=== PATIENT | male | born 1960 | race Caucasian/White ===

== ENCOUNTER → 2022-02-24 07:56 | Outpatient (CLI) | payer OTHER, SELFPAY ==
--- NOTE | 2022-02-24 07:59 | DI.MRI.S_ITS ---
PROCEDURE: MR CERVICAL SPINE WO/W CON INDICATIONS: RULE OUT METASTATIC PROCESS TECHNIQUE: Noncontrast sagittal T1 spin echo and T2 fast spin echo, sagittal STIR, foraminal oblique sagittal T2 fast spin echo, axial gradient echo or T2 fast spin echo through the cervical spine. After the administration of contrast, axial and sagittal T1 spin echo with fat saturation through the cervical spine. COMPARISON: Outside Film, CT, CT SOFT TISSUE NECK WITH CONTRAST, 11/27/2021, 12:02. FINDINGS: Image quality: Excellent. Alignment and curvature: There is normal bony alignment. Marrow: Enhancing mass noted in the left margin of the C3 vertebral body, left facets and left lamina which has associated cortical destruction and extends into the left paraspinous soft tissues. There is loss of left lateral C3 vertebral body height compatible with mild pathologic compression fracture. Spinal cord: Visualized spinal cord has normal size and signal. No cerebellar tonsillar herniation. No abnormal intramedullary enhancement. Paraspinous soft tissues: No paravertebral masses or suspicious enhancement. C2-3: Loss of disc signal. Mild, diffuse disc bulge. Small central/left central disc protrusion. Mild to moderate narrowing of the central canal. Mild right neural foraminal narrowing. No neural compression. C3-4: Loss of disc signal. Mild, diffuse disc bulge. Small central disc protrusion. Mild to moderate narrowing of the central canal. Mild bilateral neural foraminal narrowing. No neural compression. C4-5: Loss of disc signal. Mild, diffuse disc bulge. Mild narrowing of the central canal. Mild right neural foraminal narrowing. No neural compression. C5-6: Loss of disc signal and height. Moderate, diffuse disc bulge. Small right central disc protrusion. Moderate to severe narrowing of the central canal. Mild bilateral facet hypertrophy. Mild bilateral uncovertebral joint hypertrophy. Severe bilateral neural foraminal narrowing with compression of the exiting C6 nerve roots. C6-7: Loss of disc signal and height. Moderate, diffuse disc bulge. Mild bilateral facet hypertrophy. Mild bilateral uncovertebral joint hypertrophy Moderate to severe narrowing of the central canal. Severe bilateral neural foraminal narrowing with compression of the exiting C7 nerve roots. C7-T1: Loss of disc signal. No central stenosis. No neural foraminal narrowing. No neural compression IMPRESSION: 1. Enhancing, lytic lesion involving the C3 vertebral body compatible with osseous metastatic disease. 2. Multilevel degenerative disc disease. 3. Multilevel facet and uncovertebral arthropathy. 4. Moderate to severe C5-C6 and C6-C7 central canal narrowing with slight compression of the cervical spinal cord. 5. Severe bilateral C5-C6 and C6-C7 neural foraminal narrowing with compression of the exiting bilateral C6 and C7 nerve roots. Dictated by: Mimi Duong MD, PhD on 02/26/2022 at 9:50 Approved by: Mimi Duong MD, PhD on 02/26/2022 at 10:08
--- NOTE | 2022-02-24 07:59 | DI.MRI.S_ITS ---
PROCEDURE: MR LUMBAR SPINE WO/W CON INDICATIONS: RULE OUT METASTATIC PROCESS TECHNIQUE: Noncontrast sagittal T1 spin echo and T2 fast spin echo, sagittal STIR, axial T1 and T2 fast spin echo through the lumbar spine. In cases with scoliosis, additional coronal T2 fast spin echo may be performed. After the administration of contrast, sagittal and axial T1 spin echo with fat saturation through the lumbar spine. COMPARISON: Outside Film, CT, CT ABDOMEN PELVIS WITH CONTRAST, 11/27/2021, 12:02. [place], [place], PET NECK TO MID THIGH, 01/31/2022, 10:48. FINDINGS: Image quality: Excellent. Alignment and curvature: There is normal bony alignment. Marrow: Marrow is of normal overall signal. L2 compression fracture is noted which has occurred in the interval since prior CT scan obtained November 27, 2021. The L2 compression fracture results in approximately 80% loss of normal vertebral body height. Fractures extend to the posterior wall of the L2 vertebral body indicating a burst type compression fracture. Retropulsed bone bone fragment associated with the L2 compression fracture causes mild to moderate narrowing of the central canal. No definite mass or cortical destruction associated with the L2 compression fracture. Spinal cord: Conus medullaris terminates at the T12 level. Visualized spinal cord demonstrates normal signal, without suspicious enhancement. Paraspinous soft tissues: No paravertebral masses or abnormal enhancement. IMPRESSION: 1. Acute/subacute L2 burst-type compression fracture. Fracture etiologies indeterminate and could be secondary to a osteoporotic, traumatic or pathologic etiology. 2. Retropulsed bone fragment associated with L2 compression fracture causes mild to moderate narrowing of the central canal. Dictated by: Mimi Duong MD, PhD on 02/26/2022 at 9:41 Approved by: Mimi Duong MD, PhD on 02/26/2022 at 9:47
== END ==
PROVIDERS: Referring Provider Family Medicine; Visit Provider Family Medicine
DX: S12.200A Unspecified displaced fracture of third cervical vertebra, initial encounter for closed fracture (principal); S32.020A Wedge compression fracture of second lumbar vertebra, initial encounter for closed fracture; C76.0 Malignant neoplasm of head, face and neck; C79.51 Secondary malignant neoplasm of bone; M50.31 Other cervical disc degeneration, high cervical region; M48.02 Spinal stenosis, cervical region; M47.812 Spondylosis without myelopathy or radiculopathy, cervical region
CPT/HCPCS: 72156; 72158; A9579